=== PATIENT | male | born 1990 | race African-American/Black ===

== ENCOUNTER 2023-10-08 22:07 | Emergency (ER) | payer SELFPAY ==
[~2023-10-08] VITALS: Ht 172.7 cm; Wt 117.9 kg
[2023-10-08 22:13] VITALS: BP_SYST 136; PULSE 96; RESP 20; TEMP 98.8; O2SAT 100
[2023-10-09 00:01] LABS: BILIRUBIN,URINE NEGATIVE (NEGATIVE); CLARITY/URINE CLEAR (CLEAR); COLOR,URINE YELLOW (YELLOW); GLUCOSE,URINE NEGATIVE (NEGATIVE); KETONES,URINE NEGATIVE (NEGATIVE); LEUKOCYTE ESTERASE ,URINE NEGATIVE (NEGATIVE); NITRITE, URINE NEGATIVE (NEGATIVE); PROTEIN URINE NEGATIVE (NEGATIVE); UROBILINOGEN,URINE 0.2 (0.2-1.0)
[2023-10-09 00:08] LABS: BLOOD, URINE TRACE (NEGATIVE)
[2023-10-09 00:26] LABS: BACTERIA,URINE None Seen /HPF (None Seen); RBC,URINE 0-3 /HPF (0-3); WBC,URINE 0-3 /HPF (0-3)
[2023-10-09 00:31] LABS: PLATELET COUNT (AUTO) 413 K/uL (130-430)
[2023-10-09 00:35] LABS: CALCIUM 9.4 mg/dL (8.4-11.0); CREATININE 1.17 mg/dL (0.55-1.30)
[2023-10-09 00:37] LABS: HEMATOCRIT 26.3 % (36-54); HEMOGLOBIN 8.4 g/dL (14.0-18.0); MEAN CORPUSCULAR HEMOGLOBIN 28 pg (27-31); MEAN CORPUSCULAR HGB CONC 32 % (32-36); MEAN CORPUSCULAR VOLUME 87 fL (79.0-98.0); RED BLOOD CELL COUNT(AUTO) 3.02 MIL/uL (4.2-6.2); RED CELL DISTRIBUTION WIDTH 20.7 % (9.0-15.0)
[2023-10-09 00:40] LABS: ALBUMIN 3.9 g/dL (3.4-4.8); BILIRUBIN,DIRECT 0.1 mg/dL (0.0-0.3); TOTAL BILIRUBIN 0.2 mg/dL (0.0-1.0); TOTAL PROTEIN, SERUM 8.4 g/dL (6.4-8.3)
[2023-10-09 00:47] LABS: WHITE BLOOD COUNT (AUTO) 60.5 K/uL (4.8-10.8)
[2023-10-09 01:54] LABS: BAND % (MANUAL) 8 % (0-6); LYMPHOCYTES % (MANUAL) 7 % (20-46); MONOCYTES % (MANUAL) 2 % (0-11)
[2023-10-09 01:55] LABS: METAMYELOCYTES % 1 % (0-0); MYELOCYTES % 2 % (0-0); PLATELET ESTIMATE INCREASED (ADEQUATE)
[2023-10-09 03:44] VITALS: BP_SYST 136; PULSE 96; RESP 20; TEMP 98.8; O2SAT 100
== END 2023-10-09 03:44 | disposition home or self-care (01) ==
LOC: SED 22:07
DX: C92.00 Acute myeloblastic leukemia, not having achieved remission (principal); R10.30 Lower abdominal pain, unspecified; R19.7 Diarrhea, unspecified; J45.909 Unspecified asthma, uncomplicated; Z88.0 Allergy status to penicillin; Z79.899 Other long term (current) drug therapy
CPT/HCPCS: 36415; 76376; 80048; 80076; 81000; 81001; 81015; 83690; 85007; 85027; 99284

== ENCOUNTER 2024-05-04 12:45 | Emergency (ER) | payer BC ==
[~2024-05-04] VITALS: Ht 172.7 cm; Wt 131.1 kg
[2024-05-04 12:57] VITALS: BP_SYST 113; PULSE 75; RESP 18; TEMP 98.3; O2SAT 98
[2024-05-04 13:53] LABS: BASOPHILS # (AUTO) 0.1 K/uL (0.0-0.2); BASOPHILS % (AUTO) 0.7 % (0.0-2.0); EOSINOPHILS # (AUTO) 0.1 K/uL (0.0-0.4); EOSINOPHILS % (AUTO) 1.2 % (0.0-4.0); HEMOGLOBIN 12.1 g/dL (14.0-18.0); LYMPHOCYTES # (AUTO) 2.5 K/uL (1.0-5.5); LYMPHOCYTES % (AUTO) 29.3 % (20.5-51.5); MEAN CORPUSCULAR HEMOGLOBIN 22 pg (27-31); MEAN CORPUSCULAR HGB CONC 31 % (32-36); MEAN CORPUSCULAR VOLUME 72 fL (79.0-98.0); MONOCYTES # (AUTO) 1.1 K/uL (0.0-1.0); MONOCYTES % (AUTO) 13.1 % (1.7-9.3); NEUTROPHILS # (AUTO) 4.7 K/uL (1.8-7.7); NEUTROPHILS % (AUTO) 55.7 % (40.0-70.0); PLATELET COUNT (AUTO) 444 K/uL (130-430); RED BLOOD CELL COUNT(AUTO) 5.42 MIL/uL (4.2-6.2); RED CELL DISTRIBUTION WIDTH 22.7 % (9.0-15.0); WHITE BLOOD COUNT (AUTO) 8.5 K/uL (4.8-10.8)
[2024-05-04 13:55] LABS: BILIRUBIN,URINE NEGATIVE (NEGATIVE); BLOOD, URINE NEGATIVE (NEGATIVE); CLARITY/URINE CLEAR (CLEAR); COLOR,URINE YELLOW (YELLOW); GLUCOSE,URINE NEGATIVE (NEGATIVE); KETONES,URINE NEGATIVE (NEGATIVE); LEUKOCYTE ESTERASE ,URINE NEGATIVE (NEGATIVE); NITRITE, URINE NEGATIVE (NEGATIVE); PH,URINE 6.5 (5.0-8.0); PROTEIN URINE NEGATIVE (NEGATIVE); UROBILINOGEN,URINE 0.2 (0.2-1.0)
[2024-05-04 14:06] LABS: CALCIUM 9.4 mg/dL (8.4-11.0); CREATININE 1.04 mg/dL (0.55-1.30); POTASSIUM 4.4 mmol/L (3.5-5.1)
[2024-05-04 14:27] LABS: ALANINE AMINOTRANSFERASE 63 U/L (12-78); ALBUMIN 4.1 g/dL (3.4-4.8); ASPARTATE AMINOTRANSFERASE 64 U/L (10-37); BILIRUBIN,DIRECT 0.1 mg/dL (0.0-0.3); CREATINE KINASE, TOTAL 2422 U/L (39-308); THYROID STIMULATING HORMONE 1.67 uIu/mL (0.34-4.82); TOTAL BILIRUBIN 0.2 mg/dL (0.0-1.0); TOTAL PROTEIN, SERUM 8.6 g/dL (6.4-8.3)
[2024-05-04 14:31] LABS: ANISOCYTOSIS 2+; HYPOCHROMASIA 1+
[2024-05-04 14:32] LABS: OVALOCYTES FEW; STOMATOCYTES FEW; TARGET CELLS FEW
[2024-05-04 14:43] LABS: PROTHROMBIN TIME 10.6 SECS (9.5-12.5)
[2024-05-04 14:54] LABS: CKMB RELATIVE INDEX 0.4 (0.0-2.9)
[2024-05-04 14:55] VITALS: BP_SYST 111; PULSE 73; RESP 20; TEMP 98.6; O2SAT 99
[2024-05-04] MEDS: NACL 0.9% 2,000 ML IV ONE (15:27)
[2024-05-04] MEDS: SODIUM BICARBONATE 8.4% JECT 50 MEQ/50 ML SYRINGE IVP ONE (15:28)
== END 2024-05-04 17:16 | disposition left against medical advice (07) ==
LOC: SED 12:45
DX: M62.82 Rhabdomyolysis (principal); R53.1 Weakness; J45.909 Unspecified asthma, uncomplicated; Z85.6 Personal history of leukemia; Z88.0 Allergy status to penicillin
CPT/HCPCS: 99285; 96374; 96361; 71045; 80076; 80048; 81001; 82550; 82553; 84439; 84443; 85025; 85610; 85730; 84484; 36415; 93005; 83605; 81003; J7030